=== PATIENT | male | born 1965 | race Caucasian/White ===

== ENCOUNTER → 2019-12-20 | Outpatient (CLI) | payer MEDICARE ==
[~2019-12-20] MED LIST: ASPIRIN ADULT L81 M1 PO; CELECOXIB200 M1 PO; HYDROCODONE-AC1 EACH PO; LYRICA150 M1 PO; Lopressor25 MG PO; MORPHINE SULFAT30 M1 PO; PRAVACHOL20 MG PO; SEPTRA DS 800 M1 TAB PO; TIZANIDINE2 MG PO
--- NOTE | 2019-12-20 10:10 | NUR ---
INFORMED CONSENT SIGNED FOR CARDIOLYTE STRESS TEST WITH DR. JACKSON. RESTING EKG NSR, HR 61, BP 118/72. COMPLETED 10:00 OF A STANDARD SAMM PROTOCOL COMPLETING 1:00 STAGE IV, 4.2MPH/16% GRADE. PEAK HEART RATE OF 149 ACHIEVED WHICH IS 89% PREDICTED MAXIMUM AND A PEAK BP OF 158/60. TEST TERMINATED D/T SOB AND FATIGUE. NO ARRHYTHMIAS OR ST CHANGES NOTED. HAS A GOOD EXERCISE TOLERANCE. LAST RECOVERY HR 91, BP 126/76. PAST RECOVERY PT DID C/O CHEST DISCOMFORT AND INTO FACE. DR. JACKSON IN ROOM AND WAS AWARE OF PT C/O.
== END | disposition home or self-care (01) ==
LOC: CARD 00:16
DX: R07.89 Other chest pain (principal); I10 Essential (primary) hypertension

== ENCOUNTER → 2022-07-08 | Outpatient (CLI) | payer MEDICARE ==
[~2022-07-08] MED LIST changes: -TIZANIDINE2 MG PO; +ZANAFLEX4 M1 PO
== END | disposition home or self-care (01) ==
LOC: CARD 01:44
PROVIDERS: ATTEND Internal Medicine Cardiovascular Disease
DX: R07.89 Other chest pain (principal)